=== PATIENT | female | born 1970 | race Caucasian/White ===

== ENCOUNTER → 2024-07-17 15:22 | Outpatient (REF) | payer BC, SELFPAY | LOC: WDC 15:22 | PROVIDERS: ATTENDING PHYSICIAN Surgery; REFERRING PHYSICIAN Obstetrics & Gynecology | DX: Z12.31 Encounter for screening mammogram for malignant neoplasm of breast (principal) | CPT/HCPCS: 77063; 77067 ==

== ENCOUNTER 2024-08-14 12:03 | Outpatient (RCR) | payer BC, SELFPAY | END 2024-08-14 23:59 | disposition home or self-care (01) | LOC: RPT 12:03 | PROVIDERS: ATTENDING PHYSICIAN Specialist; FAMILY PHYSICIAN Family Medicine | DX: M62.89 Other specified disorders of muscle (principal); Z73.6 Limitation of activities due to disability; M54.50 Low back pain, unspecified; K59.00 Constipation, unspecified; R32 Unspecified urinary incontinence | CPT/HCPCS: 97110; 97112; 97140; 97163; 97530 ==

== ENCOUNTER 2024-09-07 12:06 | Outpatient (RCR) | payer OTHER, SELFPAY | END 2024-09-07 23:59 | disposition home or self-care (01) | LOC: RPT 12:06 | PROVIDERS: ATTENDING PHYSICIAN Specialist; FAMILY PHYSICIAN Family Medicine | DX: M62.89 Other specified disorders of muscle (principal); Z73.6 Limitation of activities due to disability; M54.50 Low back pain, unspecified; R35.0 Frequency of micturition; K59.00 Constipation, unspecified; R32 Unspecified urinary incontinence | CPT/HCPCS: 97112; 97140; 97530 ==

== ENCOUNTER 2024-10-12 09:06 | Outpatient (RCR) | payer OTHER, SELFPAY | END 2024-10-12 23:59 | disposition home or self-care (01) | LOC: RPT 09:06 | PROVIDERS: ATTENDING PHYSICIAN Specialist; FAMILY PHYSICIAN Family Medicine | DX: M62.89 Other specified disorders of muscle (principal); Z73.6 Limitation of activities due to disability; M54.50 Low back pain, unspecified; R35.0 Frequency of micturition; R32 Unspecified urinary incontinence; K59.00 Constipation, unspecified | CPT/HCPCS: 97112; 97140; 97530 ==

== ENCOUNTER → 2025-05-24 14:41 | Outpatient (REF) | payer OTHER, SELFPAY | LOC: RAD 14:41 | PROVIDERS: ATTENDING PHYSICIAN Obstetrics & Gynecology | DX: N83.202 Unspecified ovarian cyst, left side (principal) | CPT/HCPCS: 76830; 76856 ==

== ENCOUNTER → 2025-07-19 15:41 | Outpatient (REF) | payer OTHER, SELFPAY | LOC: WDC 15:41 | PROVIDERS: ATTENDING PHYSICIAN Surgery | DX: Z12.31 Encounter for screening mammogram for malignant neoplasm of breast (principal) | CPT/HCPCS: 77063; 77067 ==